=== PATIENT | female | born 1995 | race Caucasian/White ===

== ENCOUNTER 2021-11-17 19:16 | Emergency (ER) | payer OTHER, SELFPAY ==
[2021-11-17 19:18] VITALS: BP 132/98; PULSE 71; RESP 18; TEMP 36.7; O2SAT 100
--- NOTE | 2021-11-17 19:20 | ED.GENADULT ---
HPI - General Adult General Chief complaint: Environmental Exposure Stated complaint: needle stick Time Seen by Provider: 11/17/21 19:20 History of Present Illness HPI narrative: Patient is a 25-year-old female presenting to the emergency department for evaluation following a needlestick exposure. Patient was administering a tetanus booster at [facility] when she went to close the needle And inadvertently had a needlestick to her left index finger on the finger pad. Patient denies any significant bleeding. Patient did contact [facility] with [facility] and was advised to come to a hospital for evaluation. Pt is UTD on her vaccinations including hepatitis and tetanus. Patient with a history of ulcerative colitis on Humira. Denies other medical problems. Related Data Home Medications Medication Instructions Recorded Confirmed adalimumab 40 mg/0.8 mL mg subcut 11/17/21 subcutaneous syringe kit (Humira) Allergies Allergy/AdvReac Type Severity Reaction Status Date / Time No Known Allergies Allergy Verified 11/17/21 19:21 Review of Systems Review of Systems: CONSTITUTIONAL: Denies fever CARDIOVASCULAR: Denies chest pain RESPIRATORY: Denies cough or dyspnea. GASTROINTESTINAL: Denies abdominal pain SKIN: Denies rash MUSCULOSKELETAL: Denies back pain NEUROLOGIC: Denies headache [facility] Social History Social History (Updated 11/17/21 @ 20:16 by Laura Soto MD) Smoking status: Never smoker Alcohol intake: never Substance use: never Gender identity (if verbalized by the patient): Female Exam Narrative: GENERAL: Awake, alert, conversant HEAD: Normocephalic, atraumatic. EYES: PERRLA and EOMI. ENT: Nares clear, no rhinorrhea or epistaxis. Mucous membranes moist. NECK: Supple. CHEST: No respiratory distress, breathing even and non labored HEART: Regular rate, sinus rhythm ABDOMEN:Non distended, non tender EXTREMITIES: Normal range of motion. No edema. Tiny puncture wound to finger pad of left index finger, no laceration, abrasion, ecchymoses. SKIN: Warm, dry, no rash. NEURO:No focal deficits. Alert and oriented x3 Course Vital Signs Vital signs: Vital Signs Temperature 36.7 C 11/17/21 19:18 Pulse Rate 71 11/17/21 19:18 Respiratory Rate 18 11/17/21 19:18 Blood Pressure 132/98 H 11/17/21 19:18 Pulse Oximetry 100 11/17/21 19:18 Oxygen Delivery Room Air 11/17/21 19:18 Temperature 36.7 C 11/17/21 19:18 Pulse Rate 71 11/17/21 21:22 Respiratory Rate 17 11/17/21 21:22 Blood Pressure 125/92 H 11/17/21 21:22 Pulse Oximetry 100 11/17/21 21:22 Oxygen Delivery Room Air 11/17/21 19:18 Medical Decision Making MDM Narrative Medical decision making narrative: Patient presented for evaluation following 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 At the time of assessment, ABCs are intact and vital signs are stable. Patient is well-appearing. There is a small puncture wound to the left index finger that is not gaping, no active bleeding, no ecchymosis. Intact distal sensation with normal range of motion of the phalanxes. Per protocol, she was tested for HIV, hepatitis panel and antibodies which she was positive for hepatitis B antibody which is expected. Her HIV test is negative. At this point, she will require follow-up with further testing. It is not recommended for the patient to have postexposure prophylaxis per guidelines. Patient then discharged home in stable condition with PCP follow-up. Vital Signs Vital Signs: Vital Signs Temperature 36.7 C 11/17/21 19:18 Pulse Rate 71 11/17/21 19:18 Respiratory Rate 18 11/17/21 19:18 Blood Pressure 132/98 H 11/17/21 19:18 Pulse Oximetry 100 11/17/21 19:18 Oxygen Delivery Room Air 11/17/21 19:18 Temperature 36.7 C 11/17/21 19:18 Pulse Rate 71 11/17/21 21:22 Respiratory Rate 17 11/17/21 21:22 Blood Pressure 125/92 H 11/17/21 21:22 Pul
[2021-11-17 20:59] LABS: HIV 1/2 Ab P24 Ag Result Negative (Negative)
[2021-11-17 21:14] LABS: Hepatitis B Surface Antigen Negative (Negative)
[2021-11-17 21:20] LABS: HAV RESULT Negative (Negative); Hepatitis B Core IgM Result Negative (Negative)
[2021-11-17 21:22] VITALS: BP 125/92; PULSE 71; RESP 17; O2SAT 100
[2021-11-17 21:31] LABS: Hepatitis B Surface Antibody > 1000.00 s/c; Hepatitis C Virus Antibody Negative (Negative)
[2021-11-17 22:23] LABS: Hepatitis B Surface Anti Res Positive
== END 2021-11-17 21:23 | disposition home or self-care (01) ==
PROVIDERS: Emergency Provider Emergency Medicine
DX: S61.231A Puncture wound without foreign body of left index finger without damage to nail, initial encounter (principal); K51.90 Ulcerative colitis, unspecified, without complications; W46.1XXA Contact with contaminated hypodermic needle, initial encounter
CPT/HCPCS: 36415; 80074; 86703; 86706; 99283; G0432